=== PATIENT | female | born 1965 | race African-American/Black ===

== ENCOUNTER → 2016-05-13 | Outpatient (CLI) | payer OTHER ==
--- NOTE | 2016-05-13 09:01 | MR ---
EXAMINATION TYPE: MR lumbar spine wo con DATE OF EXAM: 05/13/2016 7:49 AM COMPARISON: Lumbar spine x-ray January 09, 2014 HISTORY: Lumbago per order, back pain x 10 years causing pain into left buttocks and calf and right o uter thigh per patient. TECHNIQUE: Multiplanar, multisequence imaging of the lumbar spine is performed without IV contrast. FINDINGS: Sagittal images of the lumbar spine show vertebral body heights and alignment to appear sat isfactory. Multilevel disc desiccation is present. There is mild to moderate disc space narrowing mos t pronounced posteriorly L3-L4 level. Some small posterior disc herniations are present at L3-L4 and L5-S1 levels on sagittal images. Mild to moderate multilevel anterior spurring is present. The conus medullaris is normal in position and signal ending at mid L1 vertebral body level. There is small hem angioma noted at superior L2 vertebral body level. There is some heterogeneous increased T1 and T2 si gnal anteriorly consistent with Modic type II degenerative change at several endplates in the lumbar spine most pronounced at L3-L4 level. Axial images at the T12-L1 level shows mild broad disc bulge but spinal canal is preserved and bilate ral neural foramina are patent. Axial images at L1-L2 level show mild facet degenerative changes and mild broad disc bulge minimally effacing anterior thecal sac on axial image 23, bilateral neural foramina are patent. Axial images at L2-L3 level show mild broad disc bulge but spinal canal is preserved and bilateral ne ural foramina are patent Axial images at L3-L4 level show posterior spur disc complex mildly effacing anterior lateral thecal sac bilaterally. Mild to moderate facet degenerative changes are seen bilaterally. There is mild bila teral anterior inferior neural foraminal narrowing at this level identified. Axial images at the L4-L5 level show mild to moderate facet degenerative changes bilaterally. There i s broad-based left paracentral disc protrusion mildly effacing anterior thecal sac. There is mild dwayne ateral anterior inferior neural foraminal narrowing at this level identified. Axial images at L5-S1 level show moderate facet degenerative changes bilaterally. There is central di sc protrusion identified. Bilateral neural foramina are patent. Paraspinal muscle bulk is fairly well-maintained. No suspicious incidental retroperitoneal findings a re identified. IMPRESSION: Multilevel degenerative changes in the lumbar spine as detailed above with most pronounce d findings noted in mid to lower lumbar levels.
== END | disposition home or self-care (01) ==
LOC: RADMRIMAIN 07:13
PROVIDERS: ATTEND Physician Assistant Medical
DX: M47.816 Spondylosis without myelopathy or radiculopathy, lumbar region (principal)
CPT/HCPCS: 72148

== ENCOUNTER 2017-05-24 12:24 | Emergency (ER) | payer MEDICARE, OTHER ==
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
[2017-05-24] MEDS ORDERED: HYDROcodone/APAP 5-325MG 1 EACH TAB PO STA (13:11)
[2017-05-24] MEDS ORDERED: ORPHENADRINE 30 MG/ML 2 ML VIAL IM STA (13:13)
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
--- NOTE | 2017-05-24 13:21 | XR ---
EXAMINATION TYPE: XR sacrum coccyx DATE OF EXAM: 05/24/2017 COMPARISON: NONE HISTORY: Low back and sacral/coccygeal pain after fall injury yesterday TECHNIQUE: 2 views of sacrum and coccyx are acquired. FINDINGS: Some lucency from overlying bowel gas makes frontal view slightly suboptimal. There is well corticated separation consistent with old fracture or nonfused coccyx on lateral view. No acute disp laced sacral or coccygeal fracture is clearly seen. Sacroiliac joints are maintained. Sacral alar are intact bilaterally on frontal view. IMPRESSION: No acute displaced sacral fracture identified.
[2017-05-24 13:52] VITALS: BP 140/78; PULSE 87; RESP 18; TEMP 99
== END 2017-05-24 13:45 | disposition home or self-care (01) ==
LOC: EC 12:24
DX: S30.0XXA Contusion of lower back and pelvis, initial encounter (principal); I25.10 Atherosclerotic heart disease of native coronary artery without angina pectoris; F31.9 Bipolar disorder, unspecified; F17.200 Nicotine dependence, unspecified, uncomplicated; Z79.899 Other long term (current) drug therapy; Z88.6 Allergy status to analgesic agent; Z88.8 Allergy status to other drugs, medicaments and biological substances; W00.1XXA Fall from stairs and steps due to ice and snow, initial encounter; Y92.89 Other specified places as the place of occurrence of the external cause
CPT/HCPCS: 72100; 72220; 99284; 96372; J2360

== ENCOUNTER → 2017-10-11 | Outpatient (CLI) | payer MEDICARE, OTHER ==
[2017-10-07 14:33] VITALS: BMI 32.5
[2017-10-11 12:30] VITALS: BP 132/92; PULSE 74; RESP 18; TEMP 98.2
--- NOTE | 2017-10-11 12:36 | P.PN ---
Progress Note - Text Progress Note Date: 10/11/17 Patient was seen only by nurse and left before being seen by physician.
== END | disposition home or self-care (01) ==
LOC: PNWHC3 11:42
PROVIDERS: ATTEND Anesthesiology
DX: G89.29 Other chronic pain (principal); M54.5 Low back pain; M51.36 Other intervertebral disc degeneration, lumbar region; M25.561 Pain in right knee
CPT/HCPCS: 99211

== ENCOUNTER 2019-05-18 13:57 | Emergency (ER) | payer MEDICARE, OTHER ==
[2019-05-18 14:06] VITALS: BP 151/99; PULSE 81; RESP 18; TEMP 98.3
[2019-05-18] MEDS ORDERED: HYDROcodone/APAP 5-325MG 1 EACH TAB PO STA (14:44)
--- NOTE | 2019-05-18 15:28 | XR ---
EXAMINATION TYPE: XR lumbosacral spine min 4V DATE OF EXAM: 05/18/2019 CLINICAL HISTORY: Slip and fall injury today with pain. TECHNIQUE: Frontal, lateral, and oblique images of the lumbar spine are obtained. COMPARISON: Lumbar spine x-ray December 30, 2017 FINDINGS: There are 5 lumbar type vertebral bodies identified. The lumbar spine shows satisfactory alignment without evidence of acute fracture or dislocation. Mild to moderate disc space narrowing L3 -L4 level. Moderate multilevel anterior and lateral spurring with prominent left L5 spurring and lowe r lumbar spine facet arthropathy redemonstrated. Overlying soft tissue is unremarkable. IMPRESSION: No acute fracture or dislocation is seen in the lumbar spine.
[2019-05-18] MEDS ORDERED: ACET/COD 300 MG/30 MG STARTER PACK 6 TAB BTL PO STA (15:41)
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
== END 2019-05-18 16:10 | disposition home or self-care (01) ==
LOC: EC 13:57
DX: M54.5 Low back pain (principal); I10 Essential (primary) hypertension; F41.9 Anxiety disorder, unspecified; F31.9 Bipolar disorder, unspecified; F17.200 Nicotine dependence, unspecified, uncomplicated; Z79.899 Other long term (current) drug therapy; Z88.6 Allergy status to analgesic agent; Z88.8 Allergy status to other drugs, medicaments and biological substances
CPT/HCPCS: 72110; 99283

== ENCOUNTER → 2021-01-22 | Outpatient (CLI) | payer MEDICARE, OTHER ==
--- NOTE | 2021-01-22 12:39 | US ---
EXAMINATION TYPE: US abdomen complete DATE OF EXAM: 01/22/2021 COMPARISON: 02/11/2016 CLINICAL HISTORY: 55-year-old female R10.32 LLQ pain. Pt states Left side ABD/Pelvic pain TECHNIQUE: Multiple sonographic images of the abdomen are obtained. EXAM MEASUREMENTS: Liver Length: 16.2 cm Gallbladder Wall: 0.2 cm CBD: 0.4 cm Spleen: 8.9 cm Right Kidney: 10.1 x 4.5 x 5.6 cm Left Kidney: 10.5 x 5.3 x 5.3 cm Pharmacy Associate notes:Large pt body habitus Pancreas: Suboptimal visualization of pancreatic tail due to shadowing from bowel gas. Liver: Overall homogeneous appearance. Gallbladder: Lumen filled with numerous gallstones. No abnormal distention, wall thickening, or bonnie cholecystic fluid. Evidence for sonographic Bueno's sign: No CBD: wnl Spleen: wnl Right Kidney: wnl Left Kidney: wnl Upper IVC: wnl Abd Aorta: wnl IMPRESSION: 1. The gallbladder is packed with numerous small stones. No ancillary findings of acute cholecystitis . 2. No biliary ductal dilatation. 3. Suboptimal visualization of the pancreatic tail.
--- NOTE | 2021-01-22 12:56 | US ---
EXAMINATION TYPE: US transvaginal DATE OF EXAM: 01/22/2021 COMPARISON: 02/11/2016 CLINICAL HISTORY: 55-year-old female R10.32 LLQ pain. Pt states left side ABD/Pelvic pain x 1 year TECHNIQUE: Transvaginal sonographic images of the pelvis were acquired, pt was not given prep to fill bladder and voided bladder just prior to exam Date of LMP: Pt unsure, states many years ago FINDINGS: EXAM MEASUREMENTS: Uterus: 5.6 x 2.6 x 1.2 cm Endometrial Stripe: 0.3 cm Left Ovary: 1.8 x 1.0 x 1.2 cm 1. Uterus: Anteverted. The myometrium is slightly heterogeneous. 2. Endometrium: wnl 3. Right Ovary: Unable to visualize due to overlying bowel gas and pt's large pt body habitus 4. Left Ovary: wnl 5. Bilateral Adnexa: wnl 6. Posterior cul-de-sac: wnl IMPRESSION: 1. Thin, normal postmenopausal endometrial stripe. 2. Unable to visualize the right ovary. 3. Normal postmenopausal left ovary. 4. No evident adnexal abnormality or pelvic free fluid.
== END | disposition home or self-care (01) ==
LOC: RADUSWWP 07:12
PROVIDERS: ATTEND Family Medicine
DX: R10.32 Left lower quadrant pain (principal); K80.20 Calculus of gallbladder without cholecystitis without obstruction
CPT/HCPCS: 76700; 76830

== ENCOUNTER 2021-12-01 13:30 | Emergency (ER) | payer MEDICARE, OTHER ==
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
[2021-12-01 16:28] LABS: Cocaine Screen,Urine Detected (NotDetected); Tricyclic Antidepressant,Urine Detected (NotDetected)
[2021-12-01 16:29] LABS: Amphetamine Screen,Urine Not Detected (NotDetected); Barbiturate Screen,Urine Not Detected (NotDetected); Benzodiazepines Screen,Urine Not Detected (NotDetected); Methadone Screen, Urine Not Detected (NotDetected); Opiate Screen,Urine Not Detected (NotDetected); Oxycodone Screen, Urine Not Detected (NotDetected); Phencyclidine Screen,Urine Not Detected (NotDetected); Urn Cannabinoid Scrn Not Detected (NotDetected)
[2021-12-01] MEDS: NICOTINE GUM (POLACRILEX) 2 MG GUM BUCCAL PRN (17:32)
[2021-12-01 23:05] LABS: Basophils % (A) 0 %; Eosinophils # (A) 0.2 k/uL (0-0.7); Eosinophils % (A) 3 %; HCT 38.5 % (34.0-46.0); HGB 12.6 gm/dL (11.4-16.0); Lymphocytes # (A) 2.9 k/uL (1.0-4.8); Lymphocytes % (A) 39 %; MCHC 32.8 g/dL (31.0-37.0); MCV 85.3 fL (80.0-100.0); Mean Platelet Volume 6.9; Monocytes # (A) 0.5 k/uL (0-1.0); Monocytes % (A) 6 %; Neutrophils # (A) 3.7 k/uL (1.3-7.7); Neutrophils % (A) 49 %; Platelet Count 314 k/uL (150-450); RBC 4.51 m/uL (3.80-5.40); RDW 14.9 % (11.5-15.5); WBC 7.5 k/uL (3.8-10.6)
[2021-12-01 23:15] LABS: Albumin 3.5 g/dL (3.5-5.0); Calcium 9.2 mg/dL (8.4-10.2); Potassium 3.8 mmol/L (3.5-5.1); Total Bilirubin 0.2 mg/dL (0.2-1.3); Total Protein 5.9 g/dL (6.3-8.2)
[2021-12-01 23:25] LABS: Appearance,Urine Turbid (Clear); Bacteria,Urine Moderate /hpf; Bilirubin,Urine Negative (Negative); Blood,Urine Negative (Negative); Color,Urine Dark Yellow; Glucose,Urine (UA) Negative (Negative); Ketones,Urine Negative (Negative); Leukocyte Esterase,Urine Moderate (Negative); Mucus,Urine Rare /hpf; Nitrite,Urine Negative (Negative); PH, Urine 5.5 (5.0-8.0); Protein,Urine Trace (Negative); Specific Gravity,Urine 1.029 (1.001-1.035); Urobilinogen,Urine <2.0 mg/dL (<2.0); WBC,Urine 44 /hpf (0-5)
[2021-12-01 23:28] LABS: RBC,Urine 4 /hpf (0-5)
[2021-12-01 23:31] LABS: Amorphous Sediment,Urine Few /hpf
[2021-12-03] MEDS ORDERED: ALPRAZolam 1 MG TAB PO STA (12:32)
[2021-12-03] MEDS ORDERED: QUEtiapine 200 MG TAB PO SCH (12:45)
[2021-12-03] MEDS: busPIRone HCl 5 MG TAB PO SCH ×2 (12:55→21:54)
[2021-12-03] MEDS: QUEtiapine 200 MG TAB PO SCH ×3 (12:55→21:54)
[2021-12-03] MEDS: METOPROLOL SUCCINATE (ER) 50 MG TAB.ER.24H PO SCH (12:55)
[2021-12-03] MEDS: DESVENLAFAXINE SUCCINATE 50 MG TAB.ER.24H PO SCH (12:57)
[2021-12-04] MEDS: NICOTINE GUM (POLACRILEX) 2 MG GUM BUCCAL PRN (11:52)
[2021-12-04] MEDS: QUEtiapine 200 MG TAB PO SCH (11:53)
[2021-12-04] MEDS: busPIRone HCl 5 MG TAB PO SCH (11:53)
[2021-12-04] MEDS: METOPROLOL SUCCINATE (ER) 50 MG TAB.ER.24H PO SCH (11:53)
[2021-12-04] MEDS: DESVENLAFAXINE SUCCINATE 50 MG TAB.ER.24H PO SCH (11:53)
[2021-12-04 11:56] VITALS: RESP 18
--- NOTE | 2021-12-04 14:00 | ED ---
Medical Decision Making - Medical Decision Making 56-year-old female presented for psychiatric evaluation and treatment. The patient is pending transfer patient was admitted by in the emergency department and negative started the patient and stated that the patient is stable for discharge she is to be discharged with his sister she denies being suicidal at this time patient is recommended discharge is psychiatryevaluation. - Lab Data Result diagrams: 12/01/21 22:33 12/01/21 22:33 Lab Results 12/01/21 12/01/21 12/01/21 Range/Units 16:08 16:08 22:33 WBC 7.5 (3.8-10.6) k/uL RBC 4.51 (3.80-5.40) m/uL Hgb 12.6 (11.4-16.0) gm/dL Hct 38.5 (34.0-46.0) % MCV 85.3 (80.0-100.0) fL MCH 28.0 (25.0-35.0) pg MCHC 32.8 (31.0-37.0) g/dL RDW 14.9 (11.5-15.5) % Plt Count 314 (150-450) k/uL MPV 6.9 Neutrophils % 49 % Lymphocytes % 39 % Monocytes % 6 % Eosinophils % 3 % Basophils % 0 % Neutrophils # 3.7 (1.3-7.7) k/uL Lymphocytes # 2.9 (1.0-4.8) k/uL Monocytes # 0.5 (0-1.0) k/uL Eosinophils # 0.2 (0-0.7) k/uL Basophils # 0.0 (0-0.2) k/uL Sodium (137-145) mmol/L Potassium (3.5-5.1) mmol/L Chloride (98-107) mmol/L Carbon Dioxide (22-30) mmol/L Anion Gap mmol/L BUN (7-17) mg/dL Creatinine (0.52-1.04) mg/dL Est GFR (CKD-EPI)AfAm (>60 ml/min/1.73 sqM) Est GFR (CKD-EPI)NonAf (>60 ml/min/1.73 sqM) Glucose (74-99) mg/dL Calcium (8.4-10.2) mg/dL Total Bilirubin (0.2-1.3) mg/dL AST (14-36) U/L ALT (4-34) U/L Alkaline Phosphatase (38-126) U/L Total Protein (6.3-8.2) g/dL Albumin (3.5-5.0) g/dL Urine Color Dark Yellow Urine Appearance Turbid H (Clear) Urine pH 5.5 (5.0-8.0) Ur Specific [place] 1.029 (1.001-1.035) Urine Protein Trace H (Negative) Urine Glucose (UA) Negative (Negative) Urine Ketones Negative (Negative) Urine Blood Negative (Negative) Urine Nitrite Negative (Negative) Urine Bilirubin Negative (Negative) Urine Urobilinogen <2.0 (<2.0) mg/dL Ur Leukocyte Esterase Moderate H (Negative) Urine RBC 4 (0-5) /hpf Urine WBC 44 H (0-5) /hpf Amorphous Sediment Few H (None) /hpf Urine Bacteria Moderate H (None) /hpf Urine Mucus Rare H (None) /hpf 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[employer] Urine Opiates Screen Not Detected (NotDetected) Ur Oxycodone Screen Not Detected (NotDetected) Urine Methadone Screen Not Detected (NotDetected) Ur Propoxyphene Screen Not Detected (NotDetected) Ur Barbiturates Screen Not Detected (NotDetected) U Tricyclic Antidepress Detected H (NotDetected) Ur Phencyclidine Scrn Not Detected (NotDetected) Ur Amphetamines Screen Not Detected (NotDetected) U Methamphetamines Scrn Not Detected (NotDetected) U Benzodiazepines Scrn Not Detected (NotDetected) Urine Cocaine Screen Detected H (NotDetected) U Marijuana (THC) Screen Not Detected (NotDetected) Coronavirus (PCR) (Not Detectd) 12/01/21 12/01/21 12/04/21 Range/Units 22:33 22:33 12:50 WBC (3.8-10.6) k/uL RBC (3.80-5.40) m/uL Hgb (11.4-16.0) gm/dL Hct (34.0-46.0) % MCV (80.0-100.0) fL MCH (25.0-35.0) pg MCHC (31.0-37.0) g/dL RDW (11.5-15.5) % Plt Count (150-450) k/uL MPV Neutrophils % % Lymphocytes % % Monocytes % % Eosinophils % % Basophils % % Neutrophils # (1.3-7.7) k/uL Lymphocytes # (1.0-4.8) k/uL Monocytes # (0-1.0) k/uL Eosinophils # (0-0.7) k/uL Basophils # (0-0.2) k/uL Sodium 138 (137-145) mmol/L Potassium 3.8 (3.5-5.1) mmol/L Chloride 104 (98-107) mmol/L Carbon Dioxide 25 (22-30) mmol/L Anion Gap 9 mmol/L BUN 18 H (7-17) mg/dL Creatinine 0.88 (0.52-1.04) mg/dL Est GFR (CKD-EPI)AfAm 86 (>60 ml/min/1.73 sqM) Est GFR (CKD-EPI)NonAf 74 (>60 ml/min/1.73 sqM) Glucose 121 H (74-99) mg/dL Calcium 9.2 (8.4-10.2) mg/dL Total Bilirubin 0.2 (0.2-1.3) mg/dL AST 22 (14-36) U/L ALT 17 (4-34) U/L Alkaline Phosphatase 72 (38-126) U/L Total Protein 5.9 L (6.3-8.2) g/dL Albumin 3.5 (3.5-5.0) g/dL Urine Color Urine Appearance (Clear) Urine pH (5.0-8.0) Ur Specific [place] (1.001-1.035) Urine Protein (Negative) Urine Glucose (UA) (Negative) Urine Ketones (Negative) Urine Blood (Negative) Urine Nitrite (Negative) Urine Bilirubin (Negative) Urine Urobilinogen (<2.0) mg/dL Ur Leukocyte Esterase (Negative) Urine RBC (0-5) /hpf Urine WBC (0-5) /hpf Amorphous Sediment (None) /hpf Urine Bacteria (None) /hpf Urine Mucus (None) /hpf Urine Yeast (Budding) Urine Opiates Screen (NotDetected) Ur Oxycodone Screen (NotDetected) Urine Methadone Screen (NotDetected) Ur Propoxyphene Screen (NotDetected) Ur Barbiturates Screen (NotDetected) U Tricyclic Antidepress (NotDetected) Ur Phencyclidine Scrn (NotDetected) Ur Amphetamines Screen (NotDetected) U Methamphetamines Scrn (NotDetected) U Benzodiazepines Scrn (NotDetected) Urine Cocaine Screen (NotDetected) U Marijuana (THC) Screen (NotDetected) Coronavirus (PCR) Not Detected Not Detected (Not Detectd) Disposition Clinical Impression: Depression, Cocaine use Disposition: HOME SELF-CARE Condition: Stable Instructions (If sedation given, give patient instructions): Depression (ED) Additional Instructions: Please return to the Emergency Department if symptoms worsen or any other concerns. Prescriptions: Sulfamethox-Tmp 800-160Mg [Bactrim Ds] 1 each PO Q12HR #14 tab Is patient prescribed a controlled substance at d/c from ED?: No Referrals: Kelly Bravo MD [Primary Care Provider] - 1-2 days Time of Disposition: 13:59
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
[2021-12-04 15:25] VITALS: BP 118/68; PULSE 71; TEMP 98
[2021-12-04] MEDS ORDERED: QUEtiapine 400 MG TAB PO SCH (21:00)
[2021-12-04] MEDS ORDERED: busPIRone HCl 10 MG TAB PO SCH (21:00)
== END 2021-12-04 15:20 | disposition home or self-care (01) ==
LOC: EC 13:30
DX: F32.A Depression, unspecified (principal); F29 Unspecified psychosis not due to a substance or known physiological condition; E78.5 Hyperlipidemia, unspecified; I10 Essential (primary) hypertension; F17.200 Nicotine dependence, unspecified, uncomplicated; Z20.822 Contact with and (suspected) exposure to COVID-19; Z88.6 Allergy status to analgesic agent; Z88.8 Allergy status to other drugs, medicaments and biological substances
CPT/HCPCS: 36415; 80053; 80306; 81001; 82075; 85025; 87635